=== PATIENT | male | born 1970 | race Caucasian/White ===

== ENCOUNTER 2019-05-29 01:08 | Emergency (ER) | payer MEDICARE, OTHER ==
[~2019-05-29] VITALS: Ht 190.5 cm; Wt 80.3 kg
[2019-05-29] MEDS ORDERED: DIVALPROEX SODIUM 500 MG TABLET.DR PO ONE ×2 (01:30→01:43)
[2019-05-29] MEDS ORDERED: LORAZEPAM INJ 2 MG/ML VIAL IM ONE (01:30)
[2019-05-29] MEDS ORDERED: KETOROLAC TROMETHAMINE INJ 60 MG/2 ML VIAL IM ONE ×2 (01:30→01:43)
[2019-05-29] MEDS ORDERED: CLOZAPINE 100 MG TABLET PO SCH (01:30)
[2019-05-29 02:28] VITALS: BP 145/89
== END 2019-05-29 02:29 | disposition home or self-care (01) ==
LOC: ER 01:10
DX: M54.9 Dorsalgia, unspecified (principal); F17.200 Nicotine dependence, unspecified, uncomplicated
CPT/HCPCS: 96372; 99283; J1885

== ENCOUNTER 2019-10-22 05:13 | Emergency (ER) | payer MEDICARE, OTHER ==
[~2019-10-22] VITALS: Ht 188 cm; Wt 83.9 kg
--- NOTE | 2019-10-22 05:45 | NUR ---
PT PRESENTED TO THE ER WITH A C/O RT HAND (PALM) PAIN. NO BRUISES NOTED. NO WOUND #13 AND IS AWAITING EVAL BY .
[2019-10-22] MEDS ORDERED: IBUPROFEN 600 MG TABLET PO ONE ×2 (06:27→06:30)
--- NOTE | 2019-10-22 06:34 | NUR ---
PT REFUSED ALL HOMELESS RESOURCES. PT EMPHATICALLY DENIED BEING HOMELESS AND REFUSED A TAP CARD. PT REFUSED TO SIGN THE HOMELESS WAIVER/CHECKLIST, HE STATED THAT HE WAS NOT HOMELESS. PT REC'D 2 PAIRS OF SOCKS AND REC'D MEDICATION ORDERED. PT ALSO REC'D FOOD . PT AMBULATED OUT WITH A STEADY GAIT. VSS. PT STATED THAT HE ALREADY HAD A TAP CARD.
[2019-10-22 06:44] VITALS: BP 131/77
== END 2019-10-22 06:45 | disposition home or self-care (01) ==
LOC: ER 05:13
DX: S60.221A Contusion of right hand, initial encounter (principal); F41.9 Anxiety disorder, unspecified; F17.200 Nicotine dependence, unspecified, uncomplicated; W22.8XXA Striking against or struck by other objects, initial encounter; Y93.89 Activity, other specified; Y92.89 Other specified places as the place of occurrence of the external cause; Y99.8 Other external cause status
CPT/HCPCS: J7030